=== PATIENT | male | born 1930 | race Caucasian/White ===

== ENCOUNTER 2019-02-20 04:12 | Observation (INO) | payer MEDICARE, OTHER ==
[~2019-02-20] VITALS: Ht 175.3 cm; Wt 72.6 kg
--- NOTE | 2019-02-20 04:59 | RAD ---
AP chest x-ray HISTORY: Shortness of breath and chest pain. FINDINGS: Borderline cardiomegaly could be magnified by the AP portable technique. NaSal silhouette is normal. Small calcified granulomas left lower lobe. Probable calcified granulomas left hilum. No pneumothorax, pulmonary opacities or pleural effusions. Old healed right rib deformity. Arthritic change left acromioclavicular joint.. IMPRESSION: No acute process. Electronically signed by: Matthew Walls MD (02/20/2019 4:57 AM) [facility]
--- NOTE | 2019-02-20 05:03 | PHYS DOC ---
Past Medical History Past Medical History: A-Fib, Anemia, Dementia Additional Past Medical Histor: NASAL FRACTURE, CLOSED FRACTURES, DEMENTIA WITH BEHAVIORAL DISTURBANCE Past Surgical History: No Surgical History Alcohol Use: None Drug Use: None Adult General Chief Complaint Chief Complaint: ALTERED MENTAL STATUS [facility] HPI Patient is a 88 year old male who was brought here from the [facility] due to syncopal episode and chest pain. Patient lives in an assisted living units, the staff there observed him stumbling around the lobby area, then sat himself down on the floor and passed out. When they came and checked on him he said he was having chest pain. he had dementia. EMS were called to take him here for evaluation. Patient told them that he no longer had chest pain and did not want an EKG done on route. he denies any headache, no neck pain, no back pain, no pelvic pain. he denies any chest pain or any trouble breathing at this time. Fever [facility] medical record, show that he is DNR, he is is only on Remeron and Risperdal. All other ROS is negative unless otherwise noted in HPI Review of Systems Review of Systems See above Allergies Allergies Allergies Coded Allergies Type Severity Reaction Last Updated Verified No Known Drug Allergies 02/20/19 No Physical Exam Physical Exam See above Constitutional: Well developed, well nourished, no acute distress, non-toxic appearance. [] HENT: Normocephalic, atraumatic, bilateral external ears normal, oropharynx moist, no oral exudates, nose normal. [] Eyes: PERRLA, EOMI, conjunctiva normal, no discharge. [] Neck: Normal range of motion, no tenderness, supple, no stridor. [] Cardiovascular:Heart rate regular rhythm, no murmur [] Lungs & Thorax: Bilateral breath sounds clear to auscultation [] Abdomen: Bowel sounds normal, soft, no tenderness, no masses, no pulsatile masses. [] Skin: Warm, dry, no erythema, no rash. [] Back: No tenderness, no CVA tenderness. [] Extremities: No tenderness, no cyanosis, no clubbing, ROM intact, no edema. [] Neurologic: Alert, awake, disoriented to time, normal motor function, normal sensory function, no focal deficits noted. [] Psychologic: Affect normal, judgement normal, mood normal. [] Current Patient Data Vital Signs Vital Signs Date Time Temp Pulse Resp B/P (MAP) Pulse Ox O2 Delivery O2 Flow Rate FiO2 02/20/19 04:14 97.8 106 25 112/62 (79) 94 Room Air 97.8 Lab Values Laboratory Tests Test 02/20/19 04:55 White Blood Count 6.0 x10^3/uL (4.0-11.0) Red Blood Count 4.37 x10^6/uL (4.30-5.70) Hemoglobin 13.2 g/dL (13.0-17.5) Hematocrit 40.0 % (39.0-53.0) Mean Corpuscular Volume 92 fL (79-100) Mean Corpuscular Hemoglobin 30 pg (25-35) Mean Corpuscular Hemoglobin Concent 33 g/dL (31-37) Red Cell Distribution Width 14.8 % (11.5-14.5) H Platelet Count 202 x10^3/uL (140-400) Neutrophils (%) (Auto) 63 % (31-73) Lymphocytes (%) (Auto) 26 % (24-48) Monocytes (%) (Auto) 8 % (0-9) Eosinophils (%) (Auto) 2 % (0-3) Basophils (%) (Auto) 1 % (0-3) Neutrophils # (Auto) 3.8 x10^3/uL (1.8-7.7) Lymphocytes # (Auto) 1.6 x10^3/uL (1.0-4.8) Monocytes # (Auto) 0.5 x10^3/uL (0.0-1.1) Eosinophils # (Auto) 0.1 x10^3/uL (0.0-0.7) Basophils # (Auto) 0.0 x10^3/uL (0.0-0.2) Prothrombin Time 14.1 SEC (11.7-14.0) H Prothrombin Time INR 1.1 (0.8-1.1) Activated Partial Thromboplast Time 28 SEC (24-38) Sodium Level 138 mmol/L (136-145) Potassium Level 4.4 mmol/L (3.5-5.1) Chloride Level 104 mmol/L (98-107) Carbon Dioxide Level 28 mmol/L (21-32) Anion Gap 6 (6-14) Blood Urea Nitrogen 20 mg/dL (8-26) Creatinine 1.2 mg/dL (0.7-1.3) Estimated GFR (Cockcroft-Gault) 57.3 BUN/Creatinine Ratio 17 (6-20) Glucose Level 151 mg/dL (70-99) H Calcium Level 8.5 mg/dL (8.5-10.1) Magnesium Level 1.9 mg/dL (1.8-2.4) Total Bilirubin 0.9 mg/dL (0.2-1.0) Aspartate Amino Transferase (AST) 12 U/L (15-37) L Alanine Aminotransferase (ALT) 7 U/L (16-63) L Alkaline Phosphatase 68 U/L (46-116) Troponin I Quantitative < 0.017 ng/mL (0.000-0.055) PF-Auc-G-Type Natriuretic Peptide 1073 pg/mL (0-449) H Total Protein 6.6 g/dL (6.4-8.2) Albumin 3.0 g/dL (3.4-5.0) L Albumin/Globulin Ratio 0.8 (1.0-1.7) L Laboratory Tests 02/20/19 04:55 Laboratory Tests 02/20/19 04:55 EKG EKG EKG WAS DONE AND READ AT 0423, RATE OF 79 BPM, NO STEMI, SINUS RHYTHM WITH MULTIPLE PVCS. Radiology/Procedures Radiology/Procedures [][facility] [address] [facility] [place] [address] IMAGING REPORT Signed PATIENT: MARC CASTILLO ACCOUNT: [id number] : 1930 LOCATION: ER AGE: 88 SEX: M EXAM STATUS: REG ER ORD. PHYSICIAN: JJ HARRISON DO REASON: soa, chest pain PROCEDURE: PORTABLE CHEST 1V AP chest x-ray HISTORY: Shortness of breath and chest pain. FINDINGS: Borderline cardiomegaly could be magnified by the AP portable technique. NaSal silhouette is normal. Small calcified granulomas left lower lobe. Probable calcified granulomas left hilum. No pneumothorax, pulmonary opacities or pleural effusions. Old healed right rib deformity. Arthritic change left acromioclavicular joint.. IMPRESSION: No acute process. Electronically signed by: Janiya Walls MD (02/20/2019 4:57 AM) [facility] DICTATED and SIGNED BY: JANIYA WALLS MD DATE: 02/20/19 0457 [facility] [address] [place] [address] IMAGING REPORT Signed PATIENT: MARC CASTILLO ACCOUNT: [id number] : 1930 LOCATION: ED HOLD AGE: 88 SEX: M EXAM STATUS: ADM IN ORD. PHYSICIAN: JJ HARRISON DO REASON: SYNCOPE PROCEDURE: CT HEAD WO CONTRAST CT head without contrast HISTORY: Syncope. PQRS statement: CT scans at this facility use dose reduction including either automated exposure control, iterative reconstructions, and /or weight based radiation dosing via mA and kV modification when appropriate to reduce radiation dose to as low as reasonably achievable. FINDINGS: Generalized brain atrophy. No intracranial hemorrhage, mass, hydrocephalus or infarction. Mild cerebral periventricular white matter hypodense attenuation at the frontal lobes likely changes of chronic microvascular ischemic disease. Chronic appearing nasal bone fracture deformities. Orbits and mastoids are unremarkable. Fluid sphenoid sinuses. IMPRESSION: 1. No acute cranial CT abnormality. 2. Sphenoid sinus fluid and opacity may be acute sinusitis. Electronically signed by: Janiya Walls MD (02/20/2019 5:56 AM) [facility] DICTATED and SIGNED BY: JANIYA WALLS MD DATE: 02/20/19 0556 Course & Med Decision Making Course & Med Decision Making Pertinent Labs and Imaging studies reviewed. (See chart for details) [] Dragon Disclaimer Dragon Disclaimer This electronic medical record was generated, in whole or in part, using a voice recognition dictation system. Departure Departure Impression: Primary Impression: Chest pain Additional Impressions: Syncope and collapse Sinusitis Disposition: ADMITTED INPATIENT Admitting Physician: STEPHANIE (Dr. Barnard) Condition: STABLE Referrals: JUSTYN PAUL MD (PCP) Problem Qualifiers JJ HARRISON DO Feb 20, 2019 05:03
[2019-02-20 05:07] LABS: BASO % 1 % (0-3); EOS # 0.1 x10^3/uL (0.0-0.7); EOS % 2 % (0-3); HEMOGLOBIN 13.2 g/dL (13.0-17.5); LYMPH # 1.6 x10^3/uL (1.0-4.8); LYMPH % 26 % (24-48); MEAN CORPUSCULAR HEMOGLOBIN 30 pg (25-35); MEAN CORPUSCULAR HGB CONC 33 g/dL (31-37); MEAN CORPUSCULAR VOLUME 92 fL (79-100); MONO # 0.5 x10^3/uL (0.0-1.1); MONO % 8 % (0-9); NEUT # 3.8 x10^3/uL (1.8-7.7); NEUT % 63 % (31-73); PLATELET COUNT 202 x10^3/uL (140-400); RED BLOOD COUNT 4.37 x10^6/uL (4.30-5.70); RED CELL DISTRIBUTION WIDTH 14.8 % (11.5-14.5)
[2019-02-20 05:16] LABS: CALCIUM 8.5 mg/dL (8.5-10.1); CREATININE 1.2 mg/dL (0.7-1.3); GFR 57.3; POTASSIUM 4.4 mmol/L (3.5-5.1)
[2019-02-20 05:21] LABS: ALBUMIN/GLOBULIN RATIO 0.8 (1.0-1.7); MAGNESIUM 1.9 mg/dL (1.8-2.4); PROTHROMBIN TIME PATIENT 14.1 SEC (11.7-14.0); TOTAL BILIRUBIN 0.9 mg/dL (0.2-1.0); TOTAL PROTEIN 6.6 g/dL (6.4-8.2)
--- NOTE | 2019-02-20 05:59 | RAD ---
CT head without contrast HISTORY: Syncope. PQRS statement: CT scans at this facility use dose reduction including either automated exposure control, iterative reconstructions, and /or weight based radiation dosing via mA and kV modification when appropriate to reduce radiation dose to as low as reasonably achievable. FINDINGS: Generalized brain atrophy. No intracranial hemorrhage, mass, hydrocephalus or infarction. Mild cerebral periventricular white matter hypodense attenuation at the frontal lobes likely changes of chronic microvascular ischemic disease. Chronic appearing nasal bone fracture deformities. Orbits and mastoids are unremarkable. Fluid sphenoid sinuses. IMPRESSION: 1. No acute cranial CT abnormality. 2. Sphenoid sinus fluid and opacity may be acute sinusitis. Electronically signed by: Matthew Walls MD (02/20/2019 5:56 AM) [facility]
[2019-02-20] MEDS ORDERED: methylPREDNISolone SOD SUCC PF 125 MG/2 ML VIAL. IV ONE (06:30)
[2019-02-20] MEDS ORDERED: cefTRIAXone IV Push 2 GM VIAL. IVP ONE (06:30)
--- NOTE | 2019-02-20 10:43 | EKG ---
[facility] [address] [place] [address] Test Date: 2019-02-20 Test Time: 04:22:11 Pat Name: MACR CASTILLO Department: Room: Gender: M Director Clinical Applications: : 1930 Requested By: JJ HARRISON Order Number: [id number] Reading MD: Measurements Intervals [place] Rate: 79 P: FL: QRS: -55 QRSD: 86 T: 50 QT: 392 QTc: 451 Interpretive Statements IRREGULAR RHYTHM, NO P-WAVE FOUND VENTRICULAR PREMATURE COMPLEX(ES) ABNORMAL LEFT AXIS DEVIATION LEFT ANTERIOR FASCICULAR BLOCK ABNORMAL ECG RI6.01 No previous ECG available for comparison
--- NOTE | 2019-02-20 12:34 | PDOC1 ---
History and Physical Date of Admission: Date of Admission DATE: 02/20/19 TIME: 12:28 Chief Complaint: Problems: (1) Sinusitis (2) Syncope and collapse (3) Chest pain Chief Complain: Chest pain and syncope History of Present Illness: HPI: This is a pleasant 88-year-old male who had a syncopal episode at the retirement. He really doesn't have any true blood related family but he has 3 friends good here in the ER with him. They state they had a premonition because he was getting out of control and was running away from home and has dementia. Today he apparently had a syncopal episode at the retirement Family he lives in assisted care unit within the retirement. He was in the lobby and the staff found on the floor passed out. They called 911 and the patient complains some chest pain Rates his pain at 6 out of 10 Has associated weakness Moving makes it worse he still makes it better Describes as pressure-like in sensation Should be noted the patient is DNR How ever to be safer going to go ahead and admit the patient and consult cardiology and give him a full cardiac workup Past Medical/Surgical History: PMH/PSH: Past Medical History: A-Fib, Anemia, Dementia Additional Past Medical Histor: NASAL FRACTURE, CLOSED FRACTURES, DEMENTIA WITH BEHAVIORAL DISTURBANCE Past Surgical History: No Surgical History Alcohol Use: None Drug Use: None Allergies: Allergies: Coded Allergies: No Known Drug Allergies (Unverified , 02/20/19) Family History: Family History: Coronary disease Social History: Social Hisoty: He lives at a retirement in the assisted care side He has dementia and is He does not drink smoke or take drugs he is retired He is a and served in the [employer] Current Medications: Current Medications Current Medications Ceftriaxone Sodium (Rocephin) 2 gm 1X ONCE IVP Last administered on 02/20/19at 06:33; Start 02/20/19 at 06:30; Stop 02/20/19 at 06:31; Status DC Methylprednisolone Sodium Succinate (SOLU-Medrol 125MG VIAL) 125 mg 1X ONCE IV Last administered on 02/20/19at 06:33; Start 02/20/19 at 06:30; Stop 02/20/19 at 06:31; Status DC ROS: Review of Systems Review of System REVIEW OF SYSTEMS: GENERAL: Denies weakness SKIN: No bruising, hair changes or rashes. EYES: No blurred, double or loss of vision. NOSE AND THROAT: No history of nosebleeds, hoarseness or sore throat. HEART: Complains of chest pain but is getting better now LUNGS: Denies cough, hemoptysis, wheezing or shortness of breath. GASTROINTESTINAL: Denies changes in appetite, nausea, vomiting, diarrhea or constipation. GENITOURINARY: No history of frequency, urgency, hesitancy or nocturia. NEUROLOGIC: Complains of decreased memory PSYCHIATRIC: States he's to have depression but it's improved ENDOCRINE: No history of heat or cold intolerance, polyuria or polydipsia. EXTREMITIES: Denies muscle weakness, joint pain, pain on walking or stiffness. Physical Exam: Vital Signs: Vital Signs Date Time Temp Pulse Resp B/P (MAP) Pulse Ox O2 Delivery O2 Flow Rate FiO2 02/20/19 07:45 75 18 98 02/20/19 04:14 97.8 112/62 (79) Room Air 97.8 Physcial Exam: GEN: No apparent distress. Slightly forgetful HEENT: Normal cephalic, atraumatic, external auditory canals are patent EYES: Extraocular muscles are intact, pupil are equally round and reactive to light and accommodation MUSCULOSKELETAL: Well developed , well nourished, good range of motion ENDOCRINE: Ny thyromegaly was palpated LYMPHATICS: No cervical chain or axillary nodes were noted HEMATOPOIETIC: No bruising NECK: Supple, no JVD, no thyromegaly was noted LUNGS: Clear to auscultation in all lung garcia without rhonchi or wheezing HEART: RRR, S!, S2 present. Peripheral pulses intact, no obvious murmurs noted ABDOMEN: Soft, nontender. Positive bowel sounds, no organomegaly, normal bowel sounds EXTREMITIES: Without clubbing, cyanosis, or edema. Pedal pulses intact. Negative Homans sign NEUROLOGIC: He is very pleasant slightly forgetful PSYCHIATRIC: Normal affect, normal mood. Stable SKIN: No ulcerations or rashes, good skin turgor, no jaundice VASCULAR: Good capillary refill, neurovascular bundle appears to be intact Labs: Labs: Laboratory Tests Test 02/20/19 04:55 02/20/19 07:05 02/20/19 11:52 White Blood Count 6.0 x10^3/uL (4.0-11.0) Red Blood Count 4.37 x10^6/uL (4.30-5.70) Hemoglobin 13.2 g/dL (13.0-17.5) Hematocrit 40.0 % (39.0-53.0) Mean Corpuscular Volume 92 fL (79-100) Mean Corpuscular Hemoglobin 30 pg (25-35) Mean Corpuscular Hemoglobin Concent 33 g/dL (31-37) Red Cell Distribution Width 14.8 % (11.5-14.5) Platelet Count 202 x10^3/uL (140-400) Neutrophils (%) (Auto) 63 % (31-73) Lymphocytes (%) (Auto) 26 % (24-48) Monocytes (%) (Auto) 8 % (0-9) Eosinophils (%) (Auto) 2 % (0-3) Basophils (%) (Auto) 1 % (0-3) Neutrophils # (Auto) 3.8 x10^3/uL (1.8-7.7) Lymphocytes # (Auto) 1.6 x10^3/uL (1.0-4.8) Monocytes # (Auto) 0.5 x10^3/uL (0.0-1.1) Eosinophils # (Auto) 0.1 x10^3/uL (0.0-0.7) Basophils # (Auto) 0.0 x10^3/uL (0.0-0.2) Prothrombin Time 14.1 SEC (11.7-14.0) Prothromb Time International Ratio 1.1 (0.8-1.1) Activated Partial Thromboplast Time 28 SEC (24-38) Sodium Level 138 mmol/L (136-145) Potassium Level 4.4 mmol/L (3.5-5.1) Chloride Level 104 mmol/L (98-107) Carbon Dioxide Level 28 mmol/L (21-32) Anion Gap 6 (6-14) Blood Urea Nitrogen 20 mg/dL (8-26) Creatinine 1.2 mg/dL (0.7-1.3) Estimated GFR (Cockcroft-Gault) 57.3 BUN/Creatinine Ratio 17 (6-20) Glucose Level 151 mg/dL (70-99) Calcium Level 8.5 mg/dL (8.5-10.1) Magnesium Level 1.9 mg/dL (1.8-2.4) Total Bilirubin 0.9 mg/dL (0.2-1.0) Aspartate Amino Transf (AST/SGOT) 12 U/L (15-37) Alanine Aminotransferase (ALT/SGPT) 7 U/L (16-63) Alkaline Phosphatase 68 U/L (46-116) Troponin I Quantitative < 0.017 ng/mL (0.000-0.055) < 0.017 ng/mL (0.000-0.055) < 0.017 ng/mL (0.000-0.055) CG-Eep-X-Type Natriuretic Peptide 1073 pg/mL (0-449) Total Protein 6.6 g/dL (6.4-8.2) Albumin 3.0 g/dL (3.4-5.0) Albumin/Globulin Ratio 0.8 (1.0-1.7) Laboratory Tests Test 02/20/19 04:55 02/20/19 07:05 02/20/19 11:52 White Blood Count 6.0 x10^3/uL (4.0-11.0) Red Blood Count 4.37 x10^6/uL (4.30-5.70) Hemoglobin 13.2 g/dL (13.0-17.5) Hematocrit 40.0 % (39.0-53.0) Mean Corpuscular Volume 92 fL (79-100) Mean Corpuscular Hemoglobin 30 pg (25-35) Mean Corpuscular Hemoglobin Concent 33 g/dL (31-37) Red Cell Distribution Width 14.8 % (11.5-14.5) Platelet Count 202 x10^3/uL (140-400) Neutrophils (%) (Auto) 63 % (31-73) Lymphocytes (%) (Auto) 26 % (24-48) Monocytes (%) (Auto) 8 % (0-9) Eosinophils (%) (Auto) 2 % (0-3) Basophils (%) (Auto) 1 % (0-3) Neutrophils # (Auto) 3.8 x10^3/uL (1.8-7.7) Lymphocytes # (Auto) 1.6 x10^3/uL (1.0-4.8) Monocytes # (Auto) 0.5 x10^3/uL (0.0-1.1) Eosinophils # (Auto) 0.1 x10^3/uL (0.0-0.7) Basophils # (Auto) 0.0 x10^3/uL (0.0-0.2) Prothrombin Time 14.1 SEC (11.7-14.0) Prothromb Time International Ratio 1.1 (0.8-1.1) Activated Partial Thromboplast Time 28 SEC (24-38) Sodium Level 138 mmol/L (136-145) Potassium Level 4.4 mmol/L (3.5-5.1) Chloride Level 104 mmol/L (98-107) Carbon Dioxide Level 28 mmol/L (21-32) Anion Gap 6 (6-14) Blood Urea Nitrogen 20 mg/dL (8-26) Creatinine 1.2 mg/dL (0.7-1.3) Estimated GFR (Cockcroft-Gault) 57.3 BUN/Creatinine Ratio 17 (6-20) Glucose Level 151 mg/dL (70-99) Calcium Level 8.5 mg/dL (8.5-10.1) Magnesium Level 1.9 mg/dL (1.8-2.4) Total Bilirubin 0.9 mg/dL (0.2-1.0) Aspartate Amino Transf (AST/SGOT) 12 U/L (15-37) Alanine Aminotransferase (ALT/SGPT) 7 U/L (16-63) Alkaline Phosphatase 68 U/L (46-116) Troponin I Quantitative < 0.017 ng/mL (0.000-0.055) < 0.017 ng/mL (0.000-0.055) < 0.017 ng/mL (0.000-0.055) YU-Xvu-F-Type Natriuretic Peptide 1073 pg/mL (0-449) Total Protein 6.6 g/dL (6.4-8.2) Albumin 3.0 g/dL (3.4-5.0) Albumin/Globulin Ratio 0.8 (1.0-1.7) Images: Images CT head without contrast HISTORY: Syncope. PQRS statement: CT scans at this facility use dose reduction including either automated exposure control, iterative reconstructions, and /or weight based radiation dosing via mA and kV modification when appropriate to reduce radiation dose to as low as reasonably achievable. FINDINGS: Generalized brain atrophy. No intracranial hemorrhage, mass, hydrocephalus or infarction. Mild cerebral periventricular white matter hypodense attenuation at the frontal lobes likely changes of chronic microvascular ischemic disease. Chronic appearing nasal bone fracture deformities. Orbits and mastoids are unremarkable. Fluid sphenoid sinuses. IMPRESSION: 1. No acute cranial CT abnormality. 2. Sphenoid sinus fluid and opacity may be acute sinusitis. Assessment/Plan Assessment/Plan Assessment Chest pain and syncope with incidental finding of sinusitis in an elderly male who has mild dementia and the above-noted comorbidities Plan Cardiac monitoring Serial enzymes Serial EKGs O2 per nasal cannula Echocardiogram Consul cardiology IV antibiotics Consult neurology Home meds DVT prophylaxis He is DNR Long-term prognosis guarded but he is stable for today. MAL WOOD III DO Feb 20, 2019 12:34
[2019-02-20 15:35] VITALS: BP 128/101
[2019-02-20] MEDS ORDERED: MIRT15TA PO (15:46)
[2019-02-20] MEDS ORDERED: METOPROLOL TARTRATE 5 MG/5 ML VIAL. IVP STA (17:20)
[2019-02-20 19:46] VITALS: BP 109/50
[2019-02-20] MEDS ORDERED: MIRTAZAPINE 7.5 MG TABLET. PO SCH (21:00)
[2019-02-20 23:33] VITALS: BP 110/75
--- NOTE | 2019-02-21 01:00 | NUR ---
Pt. very confused and not wanting to go back to room. Occasionally combative towards staff. Will not wear gown or cafeteria monitor. After much coaxing, pt finally able to be redirected to room. Will continue to monitor.
[2019-02-21 07:00] VITALS: BP 131/74
--- NOTE | 2019-02-21 09:37 | PDOC2 ---
CARDIAC CONSULT DATE OF CONSULT Date of Consult DATE: 02/21/19 TIME: 09:31 REASON FOR CONSULT Reason for Consult: Chest pain REFERRING PHYSICIAN Referring Physician: Dr. Meza SOURCE Source: Caregiver, Chart review HISTORY OF PRESENT ILLNESS HISTORY OF PRESENT ILLNESS This is a 88 yo male, with a history of AFIB and advanced dementia, who presented form assisted living facility secondary to chest pain and syncopal episode. Patient was reportedly wandering around the unit, stumbling. Apparently sat himself down and subsequently passed out briefly. Patient apparently c/o some chest pain and EMS was called. He declined EKG in route. HPI obtained from chart review as patient cannot recalled events. Spoke with DPTAWNY, Yao Jay. Patient follows at [facility] and was previously on rate control therapy and a blood thinner of some sort. He had difficulty remembering medications and the decision was made about 2 years ago to take him off all these medications. Has been doing well up until this point and no other reports of complaints of chest pain. Patient wore tele briefly, had difficulty with confusion and continues to take it off. Per DPOA, they would like to continue with conservative management given significant dementia, which is very appropriated. Patient is a DNR. No complaints this morning of chest pain, dizziness, diaphoresis, palpitations, SOA, or nausea/vomiting. PAST MEDICAL HISTORY Cardiovascular: AFIB CENTRAL NERVOUS SYSTEM: Dementia PAST SURGICAL HISTORY Past Surgical History: No pertinent history FAMILY HISTORY Family History: Other (noncontributory ) SOCIAL HISTORY Smoke: No ALCOHOL: none Drugs: None Lives: Jail CURRENT MEDICATIONS CURRENT MEDICATIONS Current Medications Medications (Trade) Dose Ordered Sig/Cristobal Route PRN Reason Start Time Stop Time Status Last Admin Dose Admin Mirtazapine (Remeron) 7.5 mg QHS PO 02/20/19 21:00 02/20/19 20:59 Metoprolol Tartrate (Lopressor Vial) 5 mg 1X STAT IVP 02/20/19 17:20 02/20/19 17:22 DC 02/20/19 17:33 ALLERGIES ALLERGIES: Coded Allergies: No Known Drug Allergies (Unverified , 02/20/19) ROS Review of System 14 point ROS conducted although limited due to dementia PHYSICAL EXAM General: Alert, Cooperative, No acute distress, Other (oriented to self only) HEENT: Atraumatic, Mucous membr. moist/pink Lungs: Clear to auscultation, Normal air movement Heart: Regular rate, Normal S1, Normal S2, No murmurs Abdomen: Soft, No tenderness Extremities: No edema, Normal pulses Skin: No significant lesion Neuro: Normal speech, Sensation intact Psych/Mental Status: Mood NL MUSCULOSKELETAL: Osteoarthritic changes both hands VITALS/I&O VITALS/I&O: Vital Signs Date Time Temp Pulse Resp B/P (MAP) Pulse Ox O2 Delivery O2 Flow Rate FiO2 02/21/19 07:00 97.3 94 18 131/74 (93) 99 Room Air 97.3 I & O 02/20/19 02/20/19 02/21/19 15:00 23:00 07:00 Intake Total 120 ml 120 ml Balance 120 ml 120 ml LABS Lab: Laboratory Tests Test 02/20/19 11:52 Troponin I Quantitative < 0.017 ng/mL (0.000-0.055) ASSESSMENT/PLAN ASSESSMENT/PLAN 1. Chest pain, details unknown. No recollection of pain. 2. Syncopal episode; etiology unclear. Unable to recall events due to dementia 3. Chronic AFIB with RVR; rate now controlled. Will not wear tele. HR elevated 170 range last night. Was previously on rate control and blood thinner, but these were discontinued about 2 years ago. Follows at the [facility] 4. 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 Continue with conservative management, is DNR. Follow up with [facility] upon discharge ENZO CAMPBELL APRN Feb 21, 2019 09:37
[2019-02-21 11:00] VITALS: BP 102/57
[2019-02-21] MEDS ORDERED: METOPROLOL TART IMMED RELEASE 25 MG TABLET. PO SCH (11:00)
[2019-02-21] MEDS ORDERED: ASPIRIN ENTERIC COATED 81 MG TABLET.DR. PO SCH (11:00)
[2019-02-21 11:33] VITALS: BP 102/57
--- NOTE | 2019-02-21 12:04 | NUR ---
SS following for discharge planning. SS reviewed pt chart. Pt is from the [facility], ; fax [phone], and is currently on room air. SS phoned and faxed clinical to the [facility]. SS will continue to follow for discharge planning.
--- NOTE | 2019-02-21 12:36 | PDOC ---
[facility] PROGRESS NOTE Chief Complaint Chief Complaint Chief Complaint: Chief Complain: Chest pain and syncope Problems: 1. Sinusitis 2. Chest pain 3. Chronic A Fib with RVR 4. Dementia History of Present Illness History of Present Illness HPI: Pt seen and examined by Dr. Wood with medical students present. This is a pleasant 88-year-old male who had a syncopal episode w/ chest pain at the alf and was brought to hosp on 02/20/19. Pt was pleasant and conversant. Pt denies any chest pain, lightheadedness, fever, N/V, SOB. Friend was in room for emotional support as pt has no living relatives. Dw Nurse about dc considering cardiology has signed off on pt. Vitals/I&O Vitals/I&O: Vital Signs Date Time Temp Pulse Resp B/P (MAP) Pulse Ox O2 Delivery O2 Flow Rate FiO2 02/21/19 11:33 96 102/57 02/21/19 11:00 97.6 16 98 Room Air 97.6 I & O 02/20/19 02/20/19 02/21/19 15:00 23:00 07:00 Intake Total 120 ml 120 ml Balance 120 ml 120 ml Physical Exam General: Alert, Cooperative, No acute distress, Other (oriented to self only) Heart: Regular rate, Normal S1, Normal S2, No murmurs Lungs: Clear Abdomen: Soft, No tenderness Extremities: No edema, Normal pulses, No tenderness/swelling Skin: No rashes, No breakdown, No significant lesion Review of Systems Review of Systems: Review of System REVIEW OF SYSTEMS: GENERAL: Denies weakness SKIN: No bruising, hair changes or rashes. EYES: No blurred, double or loss of vision. NOSE AND THROAT: No history of nosebleeds, hoarseness or sore throat. HEART: Denies chest pain LUNGS: Denies cough, hemoptysis, wheezing or shortness of breath. GASTROINTESTINAL: Denies changes in appetite, nausea, vomiting, diarrhea or constipation. GENITOURINARY: No history of frequency, urgency, hesitancy or nocturia. NEUROLOGIC: Complains of decreased memory PSYCHIATRIC: States he's to have depression but it's improved ENDOCRINE: No history of heat or cold intolerance, polyuria or polydipsia. EXTREMITIES: Denies muscle weakness, joint pain, pain on walking or stiffness. Assessment and Plan Assessmemt and Plan Assessment 1.Chest pain and syncope 2. Sinusitis- found incidentally on exam in 3. Chronic A Fib with RVR 4. Dementia Plan 1.DC to [facility] ok from [facility]ology Should Pt remain per cardiology continue: 2.Cardiac monitoring 3.Serial enzymes 4. Serial EKGs 5. O2 per nasal cannula 6. Echocardiogram 7. Cardiology folowing and added low-dose metoprolol for rate control 8. IV antibiotics- given 1 dose of Rocephin on 02/20 9. Consult neurology regaurding dementia as outpt 10. continue Home meds 11. DVT prophylaxis 12. Pt is DNR Comment Review of Relevant I have reviewed the following items elana (where applicable) has been applied. Medications: Current Medications Medications (Trade) Dose Ordered Sig/Cristobal Route PRN Reason Start Time Stop Time Status Last Admin Dose Admin Mirtazapine (Remeron) 7.5 mg QHS PO 02/20/19 21:00 02/20/19 20:59 Metoprolol Tartrate (Lopressor Vial) 5 mg 1X STAT IVP 02/20/19 17:20 02/20/19 17:22 DC 02/20/19 17:33 Metoprolol Tartrate (Lopressor) 12.5 mg BID PO 02/21/19 11:00 02/21/19 11:33 MAL WOOD III DO Feb 21, 2019 12:36
--- NOTE | 2019-02-21 13:37 | SNU/HH DC ---
DISCHARGE ORDERS DISCHARGE INFORMATION: FINAL DIAGNOSIS Problems Medical Problems: (1) Chest pain Status: Acute (2) Sinusitis Status: Acute (3) Syncope and collapse Status: Acute CONDITION ON DISCHARGE: Stable CODE STATUS: Code Status: Full PRISON: SNF STAY <30 DAYS: No HOSPICE: HOSPICE: No HOSPICE EVAL & TREAT: No LTAC: ADMIT TO LTAC: No POST DISCHARGE ORDERS: ACTIVITY ORDERS: Resume previous activity DIET AFTER DISCHARGE: Cardiac DISCHARGE MEDICATIONS: Home Meds Reported Medications Mirtazapine (REMERON) 15 Mg Tablet, 7.5 MG PO QHS for Depression, #30 TAB 1 Refill 02/20/19 MAL WOOD III DO Feb 21, 2019 13:37
--- NOTE | 2019-02-21 14:18 | NUR ---
Discharge Note: [facility] Discharge instructions and discharge home medications reviewed with Patient and a copy given. All questions have been answered and understanding verbalized. The following instructions and handouts were given: A-Fib Discontinued lines and drains: Peripheral IV intact. Patient discharged to [facility]illed Nursing Care with Friend via Wheelchair
--- NOTE | 2019-02-25 10:27 | DS ---
DATE OF DISCHARGE: 02/21/2019 ADMISSION DIAGNOSES: Chest pain and syncope. DISCHARGE DIAGNOSES: Atypical chest pain and resolving syncope. HOSPITAL COURSE: The patient is a pleasant 88-year-old male who presented with syncopal episode and some chest pain. He was admitted. We did cardiac monitoring, consulted Cardiology, and trended his labs. Over the next 2 days, he did better. We discharged him to long-term care. DISPOSITION: Long-term care. ACTIVITY: As tolerated. DIET: Cardiac. MEDICATIONS: Please see the MRAD. TOTAL TIME: 34 minutes. MAL WOOD DO DR: NAUN/junito JOB#: [id number] / [id number]
== END 2019-02-21 14:24 | disposition home or self-care (01) ==
LOC: ER 04:12 → ED HOLD 05:46 → 6 SOUTH 15:31
PROVIDERS: ADMIT Family Medicine; ATTEND Family Medicine
DX: R55 Syncope and collapse (principal); R07.89 Other chest pain; J32.9 Chronic sinusitis, unspecified; I48.91 Unspecified atrial fibrillation; D64.9 Anemia, unspecified; F02.80 Dementia in other diseases classified elsewhere, unspecified severity, without behavioral disturbance, psychotic disturbance, mood disturbance, and anxiety
CPT/HCPCS: 36415; 70450; 71045; 80053; 83735; 83880; 84484; 85025; 85610; 85730; 93005; 96374; 96375; 99284; G0378; G0379; J0696; J2930; J3490